=== PATIENT | male | born 1965 | race Caucasian/White ===

== ENCOUNTER 2018-11-24 04:50 | Inpatient (IN) ==
--- NOTE | 2018-11-04 12:54 | PAT Medication Instructions ---
Medication Instructions Date of Service November 04, 2018 Home Medications hydrocodone-acetaminophen 1 tab PO Q6H PRN ibuprofen 800 mg PO TID PRN zolpidem 5 mg PO HS PRN ASK your surgeon for instructions ibuprofen 800 mg PO TID PRN Take morning of surgery With a small sip of water, OTHERWISE NOTHING TO EAT OR DRINK AFTER MIDNIGHT: hydrocodone-acetaminophen 1 tab PO Q6H PRN (okay to take up to 4 hours prior to surgery if needed) Take evening before surgery hydrocodone-acetaminophen 1 tab PO Q6H PRN (if needed) zolpidem 5 mg PO HS PRN (if needed) Other Notes If you have any questions please call us at [phone] or [phone] or [phone] or [phone]
--- NOTE | 2018-11-05 09:29 | Anesthesiology Consultation ---
Date of Service November 05, 2018 Assessment & Plan (1) Encounter for pre-operative examination: Plan: - PCP= 11/18/18= "medically stable for planned procedure." Chart Review Chart Review: Acceptable Risk for Surgery and Patient seen in Pre Admission Testing Teaching & Discussion Pre-Anesthesia Teaching/Discussion Notes: Instructed NPO after midnight before surgery,except medications with 15 cc of water. Medication instructions provided according to the PAT guidelines. History Surgery Operation Date: 11/24/18 07:00 Proposed Procedures p Left Total Hip Arthroplasty - Leon Morales MD Height/Weight Height: 6 ft 1 in Weight: 133.8 kg Allergies Allergy/AdvReac Type Severity Reaction Status Date / Time No Known Allergies Allergy Verified 11/04/18 12:41 Medications Home Medications Medication Instructions Recorded Confirmed Last Taken hydrocodone-acetaminophen 1 tab PO Q6H PRN 11/04/18 11/04/18 Unknown ibuprofen 800 mg PO TID PRN 11/04/18 11/04/18 Unknown zolpidem 5 mg PO HS PRN 11/04/18 11/04/18 Unknown Past Medical History Medical History Obesity Osteoarthritis Past Family History Family History Uncle Family hx of colon cancer Past Surgical History Surgical History H/O shoulder surgery BILATERAL SHOULDER RECONSTRUCTION History of adenoidectomy History of ankle surgery RIGHT ANKEL RECONSTRUCTION History of arthroscopy LEFT KNEE X2 History of carpal tunnel release BILATERAL History of cataract surgery BILATERAL History of colonoscopy History of esophagogastroduodenoscopy (EGD) History of nasal septoplasty History of tonsillectomy History of total hip arthroplasty RIGHT HIP S/P ACL repair WITH MCL REPAIR RIGHT KNEE Past Anesthesia History No Hx of Anesthesia Complications and No Family Hx of Anesthesia Complications History of PONV No Motion Sickness Screening History of Motion Sickness: No Social History Smoking Status: Former smoker tobacco type: cigarettes Do You Dip or Chew Tobacco: No Smoking End Date: QUIT 8 YEARS AGO Hx Alcohol Use: Yes Alcohol type: beer, wine and hard liquor alcohol intake frequency: a few times a week Hx Substance Use: No Exercise / Class Metabolic Activity III < 4 Walking/Shop/Light housework Review of Systems URI symptoms improving. Patient reports hip pain. Patient denies chest pain, shortness of breath, reflux, palpitations. Physical Exam Vital Signs VITALS BP 135/87 P 77 TEMP 97.9 SP02 97%RA RESP 16 Full neck and c-spine range of motion. Full TMJ range of motion. TMD 4 finger breaths Mallampati Score 2 Dentition: missing molar Lungs: clear throughout to auscultation Cardiac: regular rate and rhythm, no murmurs noted Spine: normal Carotid arteries: negative bruit Extremities: no edema Testing Electrocardiogram Date: 11/05/18 Findings: + NSR @ (64) Chest X-Ray Date: 11/05/18 Findings: + NAD Smoothly marginated lobulated abnormality within the posterior inferior left hemithorax which favors a Bochdalek hernia. Laboratory Results 11/05/18 09:40 11/05/18 09:40 Blood Type A Positive 11/05/18 09:40 Antibody Screen NEGATIVE 11/05/18 09:40 PT 10.0 Seconds (9.0-12.0) 11/05/18 09:40 INR 1.0 (0.9-1.1) 11/05/18 09:40 APTT 27.2 Seconds (21.0-31.0) 11/05/18 09:40 Urine Color Yellow 11/05/18 09:40 Urine Appearance Clear (Clear) 11/05/18 09:40 Urine pH 6.5 (4.5-7.5) 11/05/18 09:40 Ur Specific [place] 1.020 (1.000-1.030) 11/05/18 09:40 Urine Protein Negative (Negative) 11/05/18 09:40 Urine Glucose (UA) Negative (Negative) 11/05/18 09:40 Urine Ketones Negative (Negative) 11/05/18 09:40 Urine Nitrite Negative (Negative) 11/05/18 09:40 Ur Leukocyte Esterase Negative (Negative) 11/05/18 09:40
[2018-11-05 10:12] LABS: Basophils # (auto) 0.02 K/uL (0-0.2); Basophils % (auto) 0.3 %; Eosinophils # (auto) 0.19 K/uL (0-0.5); Eosinophils % (auto) 2.9 %; Hematocrit (blood only) 42.6 % (42-52); Hemoglobin 14.2 g/dL (14.0-18.0); Immature Granulocytes # (auto) 0.01 K/uL (0.00-0.02); Immature Granulocytes % (auto) 0.2 %; Lymphocytes # (auto) 1.79 K/uL (1.2-3.4); Lymphocytes % (auto) 27.3 %; Mean Corpuscular Hgb Conc 33.3 g/dL (32-36); Mean Corpuscular Volume 82.7 fL (80-100); Mean Platelet Volume 10.9 fL (7.4-10.4); Monocytes # (auto) 0.39 K/uL (0.11-0.59); Neutrophils # (auto) 4.15 K/uL (1.4-6.5); Neutrophils % (auto) 63.3 %; Platelet Count 241 K/uL (130-400); RDW Coefficient of Variation 13.6 % (11.5-14.5); Red Blood Count 5.15 M/uL (4.7-6.1); White Blood Count 6.55 K/uL (4.8-10.8)
[2018-11-05 10:21] LABS: Calcium 9.1 mg/dl (8.5-10.1); Creatinine Clr Calc Pharmacy 117.9 ml/min; Est GFR (African American) 94.6; Est GFR (Non-African American) 81.6; Potassium 4.4 mmol/L (3.5-5.1)
[2018-11-05 10:22] LABS: Partial Thromboplastin Time 27.2 Seconds (21.0-31.0)
[2018-11-05 10:23] LABS: Appearance Urine Clear (Clear); Bilirubin Urine Negative (Negative); Color Urine Yellow; Glucose Urine UA Negative (Negative); Ketones Urine Negative (Negative); Leukocyte Esterase Urine Negative (Negative); Nitrite Urine Negative (Negative); Protein Urine Negative (Negative); Urobilinogen Urine Negative (Negative); pH Urine 6.5 (4.5-7.5)
--- NOTE | 2018-11-05 10:38 | XRay Report ---
XR chest Pre-admission PA/Lat CLINICAL HISTORY: Preoperative evaluation. COMPARISON STUDY: No previous studies for comparison. FINDINGS: Lung volumes are at the lower limits of normal. There is no pneumothorax or pleural effusio n. There is no consolidation. A smoothly marginated lobulated abnormality within the posterior inferi or left hemithorax suggests a Bochdalek hernia. Cardiac size is at the upper limits of normal. Medias tinal contours are otherwise unremarkable. There is evidence for previous distal right clavicular res ection. IMPRESSION: 1. No acute cardiopulmonary findings. 2. Smoothly marginated lobulated abnormality within the posterior inferior left hemithorax which favo rs a Bochdalek hernia. Electronically signed by: Adan Braun M.D. 11/05/2018 10:36 AM
--- NOTE | 2018-11-10 17:45 | History and Physical Report ---
DATE OF ADMISSION: 11/24/2018 CHIEF COMPLAINT: Left hip pain. HISTORY OF PRESENT ILLNESS: This 53-year-old white male presents to the office with complaints of left hip pain that he has had over the last 2 years. It has progressed with time. It has become acutely worse over the last 3 months. He has a history of previous right total hip replacement and feels like his current symptoms are similar to the previous right hip DJD. Pain is anterior and lateral, worse with weightbearing. Pain is affecting his ADLs. He has tried oral anti-inflammatories as well as an intra-articular cortisone injection without improvement. He elects to proceed with surgical intervention, specifically left total hip arthroplasty, in hopes of alleviating his pain. No numbness or tingling. Preoperative imaging has been obtained. PAST MEDICAL HISTORY: Significant for history of anemia, osteoarthritis, obesity, and recent cold symptoms that have resolved. PREVIOUS SURGERIES: Right hip total hip arthroplasty 7 years ago, right total ankle arthroplasty, right and left shoulder rotator cuff repairs, bilateral carpal tunnel releases, deviated septum repair. ALLERGIES: NKDA. CURRENT MEDICATIONS: Ibuprofen, zolpidem, occasional hydrocodone. 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 Occasional alcohol use, no tobacco use x8 years. Single. FAMILY HISTORY: Significant for heart disease, stroke, cancer, and diabetes. REVIEW OF SYSTEMS: A total of 10 systems were reviewed and are significant for above stated conditions, otherwise unremarkable. PHYSICAL EXAMINATION: GENERAL: Well-developed, well-nourished middle aged white male, in no acute distress. Sitting in a chair. Alert and oriented. Obese. SKIN: Warm and dry with good turgor. No rashes or lesions. No ecchymosis or erythema. HEENT: Normocephalic, atraumatic. Eyes PERRLA, EOMI. Nares patent bilaterally without turbinate enlargement. Oropharynx without erythema or exudate. No lesions noted. Uvula midline. Oral mucosa moist. Good dentition. Fillings are noted. HEART: RRR. No MGR. LUNGS: Clear to auscultation bilaterally. No crackles, rhonchi or wheezing. Good air movement. ABDOMEN: Obese. Bowel sounds present x4, soft, nontender. No organomegaly. No masses. MUSCULOSKELETAL: Left hip evaluation reveals no obvious asymmetry or deformity. Limited range of motion. Flexion to just greater than 90 degrees. Internal rotation to neutral. External rotation of around 15 degrees. No palpable crepitus. Motion is limited by pain. No pain with palpation of his IT band or greater trochanter. He does have discomfort with palpation over the anterior flexion crease. Ambulatory with a slightly antalgic gait. NEUROLOGIC: Cranial nerves II-XII are intact. Gross sensation is intact across both lower extremities by soft touch. Peripheral pulses are 2+. DIAGNOSTIC DATA: Radiographic imaging previously obtained shows end-stage DJD of the left hip with joint space narrowing, periarticular osteophytes, and subchondral sclerosis. Cam lesion is also present. Right hip has total hip arthroplasty implant. IMPRESSION: Left hip end-stage degenerative joint disease. PLAN: Postoperative prescriptions for Percocet and Coumadin will be provided at discharge from the hospital. Anticipate discharge to home with Home Health Services or Outpatient Services. He will decide the day of surgery. He understands that he will need to have a limited work schedule for several months after surgery. Rolling walker prescription was provided. Preoperative lab work, EKG, and chest x-ray have been ordered. Medical clearance has been requested from his PCP, Dr. Veras. Informed written consent will be obtained in the morning of surgery.
[~2018-11-24 04:50] MED LIST: ROPIVACAINE 0.5% HCL/PF 150 MG, BUPIVACAINE 0.5% MPF 30 ML, EPINEPHrine 0.15 MG, Ketoro... INFIL SCH
[2018-11-24] MEDS ORDERED: ROPIVACAINE 0.5% HCL/PF 150 MG, BUPIVACAINE 0.5% MPF 30 ML, EPINEPHrine 0.15 MG, Ketoro... INFIL SCH (06:00)
[2018-11-24] MEDS ORDERED: LR 15ML/HR IV SCH (06:00)
[2018-11-24] MEDS ORDERED: CEFAZOLIN 3000MG 65 ML IV SCH (06:00)
[2018-11-24] MEDS ORDERED: TRANEXAMIC ACID 1,000 MG **IV Pre-op IV SCH (06:00)
[2018-11-24] MEDS ORDERED: BUPIVACAINE 0.5 % 5 MG/1 ML PF 10ML VIAL ONE (06:21)
[2018-11-24] MEDS ORDERED: MIDAZOLAM HCL 1 MG/ML 2ML VIAL ONE ×2 (06:28→07:07)
[2018-11-24] MEDS ORDERED: fentaNYL citrate 100 MCG/2 ML VIAL ONE (06:28)
--- NOTE | 2018-11-24 06:34 | History & Physical Bridge Note ---
Date of Service November 24, 2018 History & Physical Bridge Note I have examined the patient, reviewed the History & Physical and in the interval since the performance of the History & Physical I have noted the following changes of clinical significance: consent obtained.no changes noted
[2018-11-24] MEDS ORDERED: ORTHO JOINT ANESTHETIC ONE (06:35)
[2018-11-24] MEDS ORDERED: POVIDONE-IODINE OP SOLN 30 ML BTL ONE (06:35)
[2018-11-24] MEDS ORDERED: PROPOFOL IV EMULSION 10 MG/ML 20 ML VIAL IV ONE ×5 (07:02→07:47)
[2018-11-24] MEDS: LR 500ML BOLUS, THEN 15ML/HR IV SCH ×3 (07:06→10:23)
[2018-11-24] MEDS ORDERED: PROMETHAZINE HCL INJ 25 MG/ML 1 ML VIAL ONE (07:10)
[2018-11-24] MEDS ORDERED: ONDANSETRON INJ 2 MG/ML 2 ML VIAL ONE (07:10)
[2018-11-24] MEDS ORDERED: METOCLOPRAMIDE HCL INJ 5 MG/ML 2 ML VIAL ONE ×2 (07:15)
[2018-11-24] MEDS ORDERED: PHENYLEPHRINE 100MCG/ML 5ML SYR ONE (07:25)
--- NOTE | 2018-11-24 08:47 | Post Operative Brief Note ---
Immediate Post Op Note v1 Date of Surgery November 24, 2018 Pre & Post Diagnosis Operation Date: 11/24/18 07:00 Pre-Op Diagnosis: Left Hip Degenerative Joint Disease Post-Op Diagnosis: Left Hip Degenerative Joint Disease Procedure Operation Date: 11/24/18 07:00 Actual Procedures p Left Total Hip Arthroplasty--Uncemented(Left) - Leon Morales MD Surgeon Leon Morales MD [facility] Production [facility] Estimated Blood Loss 150 Findings Consistent with Post-Op Diagnosis
--- NOTE | 2018-11-24 09:01 | Operative Report ---
Post Operative Report Pre & Post Diagnosis Operation Date: 11/24/18 07:00 Pre-Op Diagnosis: Left Hip Degenerative Joint Disease Post-Op Diagnosis: Left Hip Degenerative Joint Disease Procedure Operation Date: 11/24/18 07:00 Actual Procedures p Left Total Hip Arthroplasty--Uncemented(Left) - Leon Morales MD Surgeon GURVINDER Morales MD Gradall Operator angel Estimated Blood Loss 150 Findings Consistent with Post-Op Diagnosis Specimens See operative report Drains None Complications none Disposition Accompanied Patient To Recovery: Yes Disposition: Recovery Room Indications This 53-year-old white male presented to the office with complaints of intractable left hip pain. Pain was worse with weightbearing. It was affecting his ADLs. He had tried conservative care measures including activity modification, physical therapy, oral medication, and injection therapy without improvement. He elected to proceed with surgical intervention after being educated about potential risks and outcomes. Preoperative imaging was obtained. Description of Procedure Patient was administered a spinal anesthetic and then taken to the operating room where he was given sedation. He was prepped and draped in the usual sterile fashion. Please see Dr. Morales's operative specifics of the procedure. I was present for the entire case from initial patient positioning through final wound closure. Assistance was provided in tissue retraction, hemostasis, trial implant placement, final implant placement, and final wound closure. Patient was taken to the recovery room in satisfactory condition. I attest to the content of the Intraoperative Record and any orders documented therein. Any exceptions are noted below.
[2018-11-24] MEDS ORDERED: ATROPINE SULFATE 0.1 MG/ML 10ML SYR IV PRN (09:10)
[2018-11-24] MEDS ORDERED: ONDANSETRON INJ 2 MG/ML 2 ML VIAL IV PRN ×2 (09:10→09:59)
[2018-11-24] MEDS ORDERED: ePHEDrine sulfate 50 MG/ML AMP IV PRN (09:10)
[2018-11-24] MEDS ORDERED: fentaNYL citrate 100 MCG/2 ML VIAL IV PRN (09:10)
--- NOTE | 2018-11-24 09:18 | Operative Report ---
DATE OF OPERATION: 11/24/2018 SURGEON: Dr. Morales. OIL DISPATCHER: Lousi Knutson PA-C. No resident or fellow available. PREOPERATIVE DIAGNOSES: Osteoarthritis with severe impingement osteophytes, left hip. POSTOPERATIVE DIAGNOSES: Osteoarthritis with severe impingement osteophytes, left hip. OPERATION PERFORMED: Noncemented left total hip replacement. PERIOPERATIVE SITUATION: Medically cleared male with intractable hip pain who has failed conservative management including an intraarticular injection about 10 weeks ago. At this point in time, he wants to proceed with surgical treatment. He understands the risks and consequences of the potential for infection, leg length inequality and dislocation, etc. X-rays reveal substantial osteoarthritis with extrusion of the head, large femoral acetabular impingement and joint space narrowing throughout the whole joint. SUMMARY OF IMPLANTS: Size 50 acetabular shell sector cup, cancellous screw 6.5 x 30 hole eliminator, neutral liner 32 x 55 high offset Tri-Lock stem and Articul/Ernesto head +9, 32. ESTIMATED BLOOD LOSS: 150 mL. CRYSTALLOID: Per Anesthesia. DESCRIPTION OF PROCEDURE: The patient appropriately identified, site verified, consent verified. Antibiotics confirmed as being given. The left lower extremity was prepped and draped in usual routine fashion. Posterior approach to the hip was made. Sharp dissection carried to skin and blunt dissection down to the fascia. The IT band and the gluteus lora fascia was then split. Care was taken to place a deep Charnley retractor and care taken to protect the sciatic nerve. He had very large muscles. These were tediously dissected. Minimal bleeding occurred. Then the short external rotators were released and preserved. The capsule was then T'd and preserved. The hip was then dislocated. The femoral neck was then resected. The femoral head was then removed. One of the metal devices to remove the head actually had a mechanical failure, but no pieces were in the patient. The head was then removed with a skid and another replacement device. Acetabular exposure was well visualized. Labrum was large and redundant and torn, it was all excised. Serial reaming carried up to a 50 and a 50 cup impacted into appropriate anteversion and inclination. There was good rim contact fit. An accessory screw was placed 6.5 x 30. Excellent purchase obtained. The wound was then irrigated with Betadine and Pulsavac and trial liner seated. The femur was then flexed and internally rotated. A box cut made lateralizing rasp and serial broaching up to a size 5. Trial reduction with a standard and high offset and the high offset produced better stability and muscle tension with the +9 head. The leg lengths were relatively equal. The hip was then dislocated. All remaining trial elements were removed. The wound irrigated with Betadine and Pulsavac. Hole eliminator seated. Permanent liner seated. Permanent stem and head seated. The hip reduced. It was stable in all planes. The wound was then irrigated with Betadine one final time and Pulsavac one final time and then closed with #2 Vicryl for the fascial layer, 2-0 Vicryl for subcutaneous layer and stainless steel clips for skin. The Orthomix injection was placed around the superficial incision 3 syringes worth. After the tristian were placed, the wound was then dressed with Xeroform, 4 x 4 gauze, ABD pads and paper tape. The patient transferred to Recovery Room in satisfactory condition having tolerated the procedure well. In the supine position, the leg lengths were about 2 mm different, side to side with the left being slightly longer. I attest to the content of the Intraoperative Record and any orders documented therein. Any exception s are noted below.
--- NOTE | 2018-11-24 09:24 | XRay Report ---
XR pelvis 1-2V routine HISTORY: 53 years-old Male Post Surgical, AP only centered on hips left hip total joint arthroplasty . COMPARISON: Left hip and pelvic radiographs 08/20/2018 TECHNIQUE: Portable AP view of the pelvis FINDINGS: Left hip total joint arthroplasty demonstrates satisfactory alignment. Expected postsurgical soft tis abel swelling and deep tissue air about the left hip with partially imaged lateral skin tristian. Right hip total joint arthroplasty is also unremarkable. No acute fracture or retained foreign body identi fied. IMPRESSION: Left hip total joint arthroplasty with satisfactory alignment. The above report was generated using voice recognition software. It may contain grammatical, syntax o r spelling errors. Electronically signed by: Simón Chadwick M.D. 11/24/2018 9:23 AM
[2018-11-24] MEDS ORDERED: ALUMINUM/MAGNESIUM SUSP 30 ML UDC PO PRN (09:59)
[2018-11-24] MEDS ORDERED: MAGNESIUM HYDROXIDE SUSP 30 ML UDC PO PRN (09:59)
[2018-11-24] MEDS ORDERED: TAMSULOSIN HCL 0.4 MG CAP PO PRN (09:59)
[2018-11-24] MEDS ORDERED: ZOLPIDEM TARTRATE 5 MG TAB PO PRN (09:59)
[2018-11-24] MEDS ORDERED: BISACODYL 10 MG SUPP PR PRN (09:59)
[2018-11-24] MEDS ORDERED: NALOXONE HCL 0.4 MG/1 ML VIAL/CARP IV PRN (09:59)
[2018-11-24] MEDS ORDERED: SODIUM CHLORIDE 0.9% 1000ML 1,000 ML IV SCH (09:59)
[2018-11-24] MEDS ORDERED: VANCOMYCIN CONSULT ACTIVE PRN (09:59)
[2018-11-24] MEDS ORDERED: ACETAMINOPHEN 1,000 MG/100 ML VIAL IV PRN (09:59)
[2018-11-24] MEDS ORDERED: METOCLOPRAMIDE HCL INJ 5 MG/ML 2 ML VIAL IV PRN (09:59)
[2018-11-24] MEDS ORDERED: DiphenhydrAMINE HCL 50 MG/ML VIAL IV PRN (09:59)
--- NOTE | 2018-11-24 10:07 | Anesthesiology Progress Note ---
Date of Service November 24, 2018 Anesthesia Post Procedure Vital Signs Vital Signs: Temp Pulse Pulse Resp BP Pulse Ox 11/24/18 09:40 36.8 C 58 L 12 118/75 100 11/24/18 09:30 54 L 16 119/72 100 11/24/18 09:20 57 L 13 118/81 100 11/24/18 09:10 51 L 13 103/72 100 11/24/18 09:00 60 17 107/71 100 11/24/18 08:51 36.3 C L 67 17 106/69 96 11/24/18 05:41 36.9 C 84 20 131/91 96 Pain Intensity Right Hip: Pain Intensity: 0 Notes Mental Status: alert / awake / arousable and participated in evaluation Nausea / Vomiting: adequately controlled Pain: adequately controlled Airway Patency, RR, SpO2: stable & adequate BP & HR: stable & adequate Hydration State: stable & adequate Neuraxial Anesthesia: was administered and sensory block is resolving Anesthetic Complications: no major complications apparent
[2018-11-24] MEDS: DOCUSATE SODIUM 100 MG CAP PO SCH ×2 (11:53→20:25)
[2018-11-24] MEDS: MULTIVITAMIN TAB PO SCH (11:53)
[2018-11-24] MEDS: OXYCODONE HCL IR 5 MG TAB (IMMEDIATE RELEASE) PO PRN ×2 (13:03→20:30)
[2018-11-24] MEDS: HYDROmorphone INJ 0.5 MG/0.5 ML SYR IV PRN ×2 (13:38→17:04)
[2018-11-24] MEDS ORDERED: ORTHO WARFARIN NOMOGRAM SCH (14:00)
--- NOTE | 2018-11-24 14:11 | Progress Note ---
DATE: 11/24/2018 SUBJECTIVE: Postop check left total hip replacement. The patient is doing well and was lying up in bed. His pain is well managed. He denies any chest pain, shortness of breath, fever, chills, nausea, vomiting or headache. He was able to eat, drink. He is voiding. His IV is already Hep-Lock. OBJECTIVE: Vital signs are stable. He is afebrile. Neurovascular check femoral sciatic nerve is excellent. Wound dressing clean, dry and intact. Postop x-rays look excellent. ASSESSMENT: Overall, doing well. Continue with postop care pathway. Mobilize, get out of bed. Prepare for discharge to home with home health for tomorrow. All questions and answers clarified.
[2018-11-24] MEDS: CEFAZOLIN 2000MG 2,000 MG/15 ML SYR IV SCH ×2 (14:17→22:20)
[2018-11-24] MEDS ORDERED: TRANEXAMIC ACID 1,000 MG in 0.9 % SODIUM CHLORIDE 100 ML IV SCH (15:00)
[2018-11-24] MEDS ORDERED: WARFARIN SOD 5 MG TAB PO ONE ×2 (16:00)
[2018-11-24] MEDS: KETOROLAC 30 MG/ML VIAL IV PRN ×2 (17:03→23:31)
[2018-11-24] MEDS: FERROUS GLUCONATE 324 MG TAB PO SCH (17:03)
[2018-11-24] MEDS ORDERED: VANCOMYCIN HCL 2,000 MG in SODIUM CHLORIDE 0.9% 500 ML IV SCH (18:00)
[2018-11-24] MEDS ORDERED: SENNA 8.6 MG TAB PO SCH (21:00)
[2018-11-24] MEDS ORDERED: HYDROmorphone INJ 1 MG/ML SYRINGE IV PRN (21:30)
[2018-11-25 07:26] LABS: Basophils # (auto) 0.01 K/uL (0-0.2); Basophils % (auto) 0.1 %; Eosinophils # (auto) 0.03 K/uL (0-0.5); Eosinophils % (auto) 0.4 %; Hematocrit (blood only) 37.9 % (42-52); Hemoglobin 12.3 g/dL (14.0-18.0); Immature Granulocytes # (auto) 0.01 K/uL (0.00-0.02); Immature Granulocytes % (auto) 0.1 %; Lymphocytes # (auto) 1.45 K/uL (1.2-3.4); Mean Corpuscular Hgb Conc 32.5 g/dL (32-36); Mean Corpuscular Volume 83.3 fL (80-100); Mean Platelet Volume 10.9 fL (7.4-10.4); Monocytes # (auto) 0.53 K/uL (0.11-0.59); Monocytes % (auto) 7.7 %; Neutrophils # (auto) 4.89 K/uL (1.4-6.5); Neutrophils % (auto) 70.7 %; Platelet Count 166 K/uL (130-400); Red Blood Count 4.55 M/uL (4.7-6.1); White Blood Count 6.92 K/uL (4.8-10.8)
[2018-11-25 07:34] LABS: Prothrombin Time 10.4 Seconds (9.0-12.0)
--- NOTE | 2018-11-25 07:40 | Progress Note ---
DATE: 11/25/2018 SUBJECTIVE: Status post left total hip replacement. The patient is doing well, has no issues. Denies chest pain, shortness of breath, fever, chills, nausea, vomiting or headache. Pain is well managed. OBJECTIVE: Vital signs are stable. He is afebrile. Neurovascular check femoral sciatic nerve is normal. Hip is located. Wound dressing clean, dry and intact. A.m. labs are pending. ASSESSMENT: Doing well, will discharge home today. Follow up in 2 weeks for staple removal. Discharge on 4 mg of Coumadin if INR is less than 1.5, 2 mg if 1.6-2.0 and 0 mg if greater than 2.
[2018-11-25 07:56] LABS: BUN Creatinine Ratio 12.8 (10-20); Calcium 8.8 mg/dl (8.5-10.1); Creatinine Clr Calc Pharmacy 121.8 ml/min; Est GFR (African American) 99.2; Est GFR (Non-African American) 85.5; Potassium 4.2 mmol/L (3.5-5.1)
[2018-11-25] MEDS ORDERED: dexAMETHasone 10 MG in SYRINGE 0 ML IV SCH (08:00)
[2018-11-25] MEDS: OXYCODONE HCL IR 5 MG TAB (IMMEDIATE RELEASE) PO PRN ×2 (08:35→12:55)
[2018-11-25] MEDS: FERROUS GLUCONATE 324 MG TAB PO SCH (08:36)
[2018-11-25] MEDS: DOCUSATE SODIUM 100 MG CAP PO SCH (08:36)
[2018-11-25] MEDS: KETOROLAC 30 MG/ML VIAL IV PRN (08:37)
[2018-11-25] MEDS: MULTIVITAMIN TAB PO SCH (08:37)
--- NOTE | 2018-11-25 08:41 | Discharge Summary ---
CHIEF COMPLAINT: Left hip pain. HISTORY OF PRESENT ILLNESS: This patient had his left total hip replacement. He has done well. His pain is well managed. He is ambulatory. He is voiding, is eating, drinking. He denies chest pain, shortness of breath, fever, chills, nausea, vomiting or headache. Hospital course has been uneventful. PAST MEDICAL HISTORY: Remarkable for anemia, osteoarthritis, and obesity. PAST SURGICAL HISTORY: Previous surgeries include right total hip replacement, right total ankle arthroplasty, right and left shoulder rotator cuff repairs, bilateral carpal tunnel releases, and nasal septum repair. ALLERGIES: None. CURRENT MEDICATIONS: Include ibuprofen, zolpidem, p.r.n. pain medication. He will be discharged on same medications with the exception of the ibuprofen and Coumadin to keep INR 1.8-2.2. SOCIAL HISTORY: He is [employer] employee. Occasional alcohol use. No tobacco, alcohol use for 8 years. REVIEW OF SYSTEMS: Noncontributory. ASSESSMENT: Overall, doing well status post left total hip replacement. His INR is subtherapeutic, at this point in time, he will be discharged on 4 mg. Repeat INR on Thursday. Bulky dressing change today, leave in place for the next week. Follow up with us in 2 weeks for staple removal. Weightbearing to tolerance. Postural indiscretion restrictions.
--- NOTE | 2018-11-25 10:50 | Orthopedic Progress Note ---
Date of Service November 25, 2018 Assessment & Plan (1) S/P total hip arthroplasty: Dressing changed by me. Will leave in place until seen in the office in 2 weeks for staple removal. continue coumadin per nomogram D/C to home today with home health nursing continue total hip precautions ice to the hip frequently for pain/swelling use walker for ambulation Subjective Patient in bed upon arrival. States he did well overnight. No significant pain. Denies N/V/CP/SOB/abd pain. Physical Exam 2 Vital Signs (Past 24 Hours): Last Vital Signs Temp 37.0 C 11/25/18 08:58 Pulse 80 11/25/18 08:58 Resp 20 11/25/18 08:58 BP 128/83 11/25/18 08:58 Pulse Ox 96 11/25/18 08:58 Physical Exam: Dressings clean/dry/intact. Upon removal, wound is dry. No active drainage. No edema/ecchymosis. Moves hip well. N/V intact to left leg for motor/sensation.
[2018-11-25] MEDS ORDERED: WARFARIN SOD 5 MG TAB PO SCH (16:00)
== END 2018-11-25 13:43 | disposition home health service (06) | DRG 470 ==
LOC: ASU 04:50 → 3E 09:00